=== PATIENT | female | born 1945 | race Caucasian/White ===

== ENCOUNTER → 2017-06-09 | Outpatient (CLI) | payer MEDICARE ==
[~2017-06-09] MED LIST: ATEN25TA PO; LOSA1TAB18 PO
== END | disposition home or self-care (01) ==
LOC: LAB 09:43
PROVIDERS: ATTEND Family Medicine
DX: E03.9 Hypothyroidism, unspecified (principal)
CPT/HCPCS: 36415; 84443

== ENCOUNTER → 2017-09-14 | Outpatient (CLI) | payer MEDICARE ==
[~2017-09-14] MED LIST changes: -LOSA1TAB18 PO; +LOSA1TAB25 PO
== END | disposition home or self-care (01) ==
LOC: RAD 12:05
PROVIDERS: ATTEND Internal Medicine Critical Care Medicine
DX: J92.9 Pleural plaque without asbestos (principal); E04.2 Nontoxic multinodular goiter
CPT/HCPCS: 71250

== ENCOUNTER 2017-09-17 05:38 | Day surgery (SDC) | payer MEDICARE ==
[2017-09-14 13:31] LABS: BLOOD UREA NITROGEN 14 mg/dL (7-18)
[2017-09-14 13:34] LABS: ASPARTATE AMINO TRANSFERASE 13 U/L (15-37)
[~2017-09-17] VITALS: Ht 162.6 cm; Wt 75.1 kg
[~2017-09-17 05:38] MED LIST changes: +AMLO2.5T PO; +ASCO10004 PO; +CARI350T PO; +D-MA50PO PO; +DEXL60CA2 PO; +DIAZ5TAB4 PO; +ESTR0.3T PO; +HYDR25TA6 PO; +LEVO25TA4 PO; +LOSA25TA5 PO; +LOSA50TA6 PO; +POTA10CA PO; +ROSU5TAB PO
[2017-09-17 06:22] VITALS: BP 153/78
[2017-09-17] MEDS ORDERED: NITR100C PO (06:29)
[2017-09-17] MEDS ORDERED: LACTATED RINGERS 1,000 ML IV SCH (06:30)
[2017-09-17] MEDS ORDERED: LIDOCAINE 1%, 2ML SQ PRN (06:30)
[2017-09-17] MEDS ORDERED: LIDOCAINE 1%, 2ML ONE (06:35)
[2017-09-17] MEDS ORDERED: NEOSTIGMINE 1 MG/ML, 10ML ONE ×2 (07:13→09:07)
[2017-09-17] MEDS ORDERED: DEXAMETHASONE 4 MG/ML, 1ML ONE ×2 (07:13)
[2017-09-17] MEDS ORDERED: ROCURONIUM 10 MG/ML,10ML ONE (07:13)
[2017-09-17] MEDS ORDERED: PROPOFOL 10 MG/ML, 20ML ONE (07:13)
[2017-09-17] MEDS ORDERED: MIDAZOLAM 1 MG/ML, 2ML ONE (07:13)
[2017-09-17] MEDS ORDERED: SUFentanil 50 MCG/ML, 1ML ONE (07:13)
[2017-09-17] MEDS ORDERED: ONDANSETRON 2MG/ML, 2ML ONE ×2 (07:14→10:01)
[2017-09-17] MEDS ORDERED: PHENYLEPHRINE 10 MG/ML ONE (07:14)
[2017-09-17] MEDS ORDERED: LIDOCAINE-MPF 2% ,5ML ONE (07:15)
[2017-09-17] MEDS ORDERED: SODIUM CHLORIDE 0.9% PF 10ML ONE (07:17)
[2017-09-17] MEDS ORDERED: LABETALOL 5MG/ML, 20ML IV PRN (08:30)
[2017-09-17] MEDS ORDERED: HYDROcodone/APAP 7.5-325MG/15ML UDC PO PRN (08:30)
[2017-09-17] MEDS ORDERED: LORazepam 2 MG/ML, 1ML IVPush PRN (08:30)
[2017-09-17] MEDS ORDERED: PROMETHAZINE 25 MG/ML, 1ML IV PRN (08:30)
[2017-09-17] MEDS ORDERED: MEPERIDINE/PF 25MG/0.5ML IVPush PRN (08:30)
[2017-09-17] MEDS ORDERED: FENTANYL PF 100 MCG/2ML IV PRN (08:30)
[2017-09-17] MEDS ORDERED: HYDROmorphone 1 MG/ML, 1ML IV PRN (08:30)
[2017-09-17] MEDS ORDERED: hydrALAzine 20 MG/ML, 1ML IV PRN (08:30)
[2017-09-17] MEDS ORDERED: ONDANSETRON 2MG/ML, 2ML IVPush PRN (08:30)
[2017-09-17] MEDS ORDERED: ACETAMINOPHEN 325 MG TABLET PO PRN (08:30)
[2017-09-17] MEDS ORDERED: GLYCOPYRROLATE 0.4 MG/2 ML, 2ML ONE (09:07)
[2017-09-17] MEDS ORDERED: METOCLOPRAMIDE 5 MG/ML, 2ML ONE (09:19)
[2017-09-17] MEDS ORDERED: PROMETHAZINE 25 MG/ML, 1ML ONE (09:19)
[2017-09-17] MEDS ORDERED: EPINEPHRINE SYRINGE 0.1 MG/ML, 10ML ONE (12:00)
== END 2017-09-17 12:20 ==
LOC: OUT 05:38
PROVIDERS: ATTEND Internal Medicine Critical Care Medicine
DX: J18.9 Pneumonia, unspecified organism (principal); J40 Bronchitis, not specified as acute or chronic; J98.4 Other disorders of lung; E78.5 Hyperlipidemia, unspecified; I10 Essential (primary) hypertension; E03.9 Hypothyroidism, unspecified; G47.33 Obstructive sleep apnea (adult) (pediatric); Z87.39 Personal history of other diseases of the musculoskeletal system and connective tissue; Z88.5 Allergy status to narcotic agent; Z88.8 Allergy status to other drugs, medicaments and biological substances
CPT/HCPCS: 31624; 31625; 31627; 31628; 31629; 36415; 71010; 76001; 80053; 81003; 87015; 87070; 87086; 87102; 87116; 87205; 87206; 88112; 88173; 88305; 93005; J1100; J2250; J2370; J2405; J2550; J2704; J2710; J3490; J7120

== ENCOUNTER → 2017-10-21 | Outpatient (CLI) | payer MEDICARE ==
[~2017-10-21] MED LIST changes: +NITR100C PO
[2017-10-21 08:17] LABS: ALANINE AMINOTRANSFERASE 24 U/L (12-78); ANION GAP 8 mmol/L (5-15); CALCIUM 9.4 mg/dL (8.5-10.1); CHLORIDE 104 mmol/L (98-107)
[2017-10-21 08:23] LABS: BASOPHILS # (AUTO) 0.03 x10^3/uL (0-0.1); BASOPHILS % (AUTO) 1 % (0-1); EOSINOPHILS # (AUTO) 0.07 x10^3/uL (0-0.4); EOSINOPHILS % (AUTO) 1 % (1-7); LYMPHOCYTES # (AUTO) 1.27 x10^3/uL (1-3.4); LYMPHOCYTES % (AUTO) 21 % (22-44); MD NO; MEAN CORPUSCULAR HEMOGLOBIN 29.1 pg (27.0-34.8); MEAN CORPUSCULAR HGB CONC 34.1 g/dL (32.4-35.8); MEAN CORPUSCULAR VOLUME 85.5 fL (80-100); MEAN PLATELET VOLUME 9.4 fL (7.4-10.4); MONOCYTES # (AUTO) 0.63 x10^3/uL (0.2-0.8); MONOCYTES % (AUTO) 11 % (2-9); NEUTROPHILS # (AUTO) 3.93 x10^3/uL (1.8-6.8); NEUTROPHILS % (AUTO) 66 % (42-75); PLATELET COUNT 140 x10^3/uL (130-400); RED BLOOD COUNT 4.78 x10^6/uL (3.82-5.3)
[2017-10-21 08:26] LABS: MICROSCOPIC INDICATED
[2017-10-21 08:28] LABS: ALKALINE PHOSPHATASE 103 U/L (45-117); BILIRUBIN,TOTAL 0.6 mg/dL (0.2-1.0); CHOL/HDL RATIO 4.1; CHOLESTEROL, TOTAL 215 mg/dL (140-239); CREATININE 0.66 mg/dL (0.55-1.02); HDL CHOL % 24 % (28-40); HDL CHOLESTEROL (DIRECT) 52 mg/dL (40-60); LDL CHOLESTEROL,CALCULATED 133 mg/dL (54-169); LDL/HDL RATIO 2.6 (0.5-3.0); TOTAL PROTEIN 7.1 g/dL (6.4-8.2); TRIGLYCERIDES 150 mg/dL (50-200); VLDL CHOLESTEROL 30 mg/dL (0-25)
== END ==
LOC: LAB 07:44
PROVIDERS: ATTEND Family Medicine
DX: E03.9 Hypothyroidism, unspecified (principal); I10 Essential (primary) hypertension; E78.2 Mixed hyperlipidemia; K21.0 Gastro-esophageal reflux disease with esophagitis; R79.89 Other specified abnormal findings of blood chemistry
CPT/HCPCS: 36415; 80053; 80061; 81001; 82306; 84443; 85025

== ENCOUNTER → 2017-10-27 | Outpatient (CLI) | payer MEDICARE | LOC: CFH 07:39 | PROVIDERS: ATTEND Internal Medicine Critical Care Medicine | DX: R91.8 Other nonspecific abnormal finding of lung field (principal) | CPT/HCPCS: 71250 ==

== ENCOUNTER → 2017-10-27 | Outpatient (CLI) | payer MEDICARE | LOC: PETCFH 07:37 | PROVIDERS: ATTEND Internal Medicine Critical Care Medicine | DX: R91.1 Solitary pulmonary nodule (principal) | CPT/HCPCS: 78815; A9552 ==

== ENCOUNTER → 2018-01-04 | Outpatient (CLI) | payer MEDICARE | END | disposition home or self-care (01) | LOC: EDSTATUS 12-31 08:30 → CFH 08:26 | PROVIDERS: ATTEND Internal Medicine Critical Care Medicine | DX: J01.90 Acute sinusitis, unspecified (principal) | CPT/HCPCS: 70486 ==

== ENCOUNTER → 2018-06-08 | Outpatient (CLI) | payer MEDICARE | END | disposition home or self-care (01) | LOC: CFH 08:56 | PROVIDERS: ATTEND Internal Medicine Critical Care Medicine | DX: R91.1 Solitary pulmonary nodule (principal) | CPT/HCPCS: 71250 ==

== ENCOUNTER → 2018-06-22 | Outpatient (CLI) | payer MEDICARE ==
[~2018-06-22] MED LIST changes: -AMLO2.5T PO; +AMLO2.5T3 PO; -LOSA25TA5 PO; +LOSA25TA6 PO; -LOSA50TA6 PO; +LOSA50TA7 PO; +REGADENOSON 0.4 MG/5 ML SYRINGE ONE
== END | disposition home or self-care (01) ==
LOC: CVU 07:51
PROVIDERS: ATTEND Nurse Practitioner Family
DX: I34.0 Nonrheumatic mitral (valve) insufficiency (principal); I35.8 Other nonrheumatic aortic valve disorders; I10 Essential (primary) hypertension
CPT/HCPCS: 78452; 93017; 93306; A9502; J2785

== ENCOUNTER 2018-07-21 06:34 | Day surgery (SDC) | payer MEDICARE ==
[~2018-07-21] VITALS: Ht 162.6 cm; Wt 76.1 kg
[~2018-07-21 06:34] MED LIST changes: -REGADENOSON 0.4 MG/5 ML SYRINGE ONE
[2018-07-21 07:35] VITALS: BP 171/84
[2018-07-21] MEDS ORDERED: LACTATED RINGERS 1,000 ML IV SCH (07:37)
[2018-07-21] MEDS ORDERED: FLUMAZENIL 0.1 MG/1 ML, 5ML ONE (08:56)
[2018-07-21] MEDS ORDERED: NALOXONE 1 MG/ML, 2ML ONE (08:56)
[2018-07-21] MEDS ORDERED: FENTANYL PF 100 MCG/2ML ONE (08:56)
[2018-07-21] MEDS ORDERED: MIDAZOLAM 1 MG/ML, 5ML ONE (08:56)
[2018-07-21] MEDS ORDERED: LIDOCAINE-MPF 2% ,5ML ONE (09:17)
== END 2018-07-21 13:00 | disposition home or self-care (01) ==
LOC: OUT 06:34
PROVIDERS: ATTEND Internal Medicine Critical Care Medicine
DX: J98.4 Other disorders of lung (principal); Z87.891 Personal history of nicotine dependence; Z88.5 Allergy status to narcotic agent; Z88.8 Allergy status to other drugs, medicaments and biological substances
CPT/HCPCS: 32405; 71045; 77012; 88305; 99156; C2613; J2250; J3010; J3490; 99157; J2310

== ENCOUNTER 2018-11-30 06:56 | Inpatient (IN) | payer MEDICARE ==
[~2018-11-30] VITALS: Ht 162.6 cm; Wt 76.0 kg
[~2018-11-30 06:56] MED LIST changes: -AMLO2.5T3 PO; +AMLO2.5T5 PO; +BUPIVACAINE/PF-EPI 0.5% 1:200K ONE; +CHOL100012 PO; +IRBE300T16 PO; +LACT1CAP35 PO; +LOSA25TA25 PO; -LOSA25TA6 PO; +LOSA50TA14 PO; -LOSA50TA7 PO
[2018-11-30] MEDS ORDERED: LACTATED RINGERS 1,000 ML IV SCH (07:37)
[2018-11-30] MEDS ORDERED: ACETAMINOPHEN 500 MG TABLET PO ONE (08:00)
[2018-11-30] MEDS ORDERED: DIAZEPAM 5 MG TABLET PO ONE (08:00)
[2018-11-30] MEDS ORDERED: LIDOCAINE-MPF 1%, 2ML INFIL ONE (08:00)
[2018-11-30] MEDS ORDERED: SCOPOLAMINE PATCH, 1.5MG PATCH.TD72 TD ONE (08:00)
[2018-11-30] MEDS ORDERED: MIDAZOLAM 1 MG/ML, 2ML ONE (08:47)
[2018-11-30] MEDS ORDERED: FENTANYL PF 250 MCG/5ML ONE (08:47)
[2018-11-30] MEDS ORDERED: CEFAZOLIN 1,000 MG ONE (09:10)
[2018-11-30] MEDS ORDERED: MIDAZOLAM 1 MG/ML, 2ML IV PRN (09:30)
[2018-11-30] MEDS ORDERED: DIAZEPAM 5 MG/ML, 2ML IVPush PRN (09:30)
[2018-11-30] MEDS ORDERED: PROMETHAZINE 12.5 MG SUPP PR PRN (09:30)
[2018-11-30] MEDS ORDERED: HALOPERIDOL 5 MG/ML IV PRN (09:30)
[2018-11-30] MEDS ORDERED: ONDANSETRON 2MG/ML, 2ML IV PRN (09:30)
[2018-11-30] MEDS ORDERED: EPHEDRINE 50 MG/ML, 1ML IVPush PRN (09:30)
[2018-11-30] MEDS ORDERED: LABETALOL 5MG/ML, 20ML IV PRN (09:30)
[2018-11-30] MEDS ORDERED: ONDANSETRON ODT 8 MG PO PRN (09:30)
[2018-11-30] MEDS ORDERED: hydrALAzine 20 MG/ML, 1ML IV PRN (09:30)
[2018-11-30] MEDS ORDERED: PROMETHAZINE 25 MG/ML, 1ML IV PRN (09:30)
[2018-11-30] MEDS ORDERED: FENTANYL PF 100 MCG/2ML IV PRN (09:30)
[2018-11-30] MEDS ORDERED: MORPHINE SULFATE 4 MG/ML, 1ML IVPush PRN (09:30)
[2018-11-30] MEDS ORDERED: ALBUTEROL SULFATE 2.5 MG/3 ML NPPB PRN (09:30)
[2018-11-30] MEDS ORDERED: MEPERIDINE/PF 25MG/0.5ML IVPush PRN (09:30)
[2018-11-30] MEDS ORDERED: NEOSTIGMINE 1 MG/ML, 10ML ONE (09:45)
[2018-11-30] MEDS ORDERED: GLYCOPYRROLATE 0.4 MG/2 ML, 2ML ONE (09:45)
[2018-11-30] MEDS ORDERED: SUCCINYLCHOLINE 20 MG/ML, 10ML ONE (09:46)
[2018-11-30] MEDS ORDERED: ONDANSETRON 2MG/ML, 2ML ONE ×2 (09:46)
[2018-11-30] MEDS ORDERED: ROCURONIUM 10MG/ML,5ML ONE (09:46)
[2018-11-30] MEDS ORDERED: PROPOFOL 10 MG/ML, 20ML ONE (09:46)
[2018-11-30] MEDS ORDERED: KETOROLAC 30 MG/1 ML ONE (09:50)
[2018-11-30] MEDS ORDERED: hydrALAzine 20 MG/ML, 1ML IVPush PRN (10:00)
[2018-11-30] MEDS ORDERED: ONDANSETRON 2MG/ML, 2ML IVPush PRN (10:00)
[2018-11-30] MEDS ORDERED: DIAZEPAM 5 MG TABLET PO PRN (10:00)
[2018-11-30] MEDS ORDERED: HYDROmorphone 1 MG/ML, 1ML ONE (10:42)
[2018-11-30] MEDS: HYDROmorphone 2 MG/ML, 1ML IVPush PRN ×5 (10:45→15:45)
[2018-11-30] MEDS: ENOXAPARIN 40 MG/0.4 ML SQ SCH (11:56)
[2018-11-30] MEDS: LACTATED RINGERS 1,000 ML IV SCH ×2 (12:04→23:08)
[2018-11-30 12:06] VITALS: BP 153/78
[2018-11-30] MEDS: HYDROcodone/APAP 5/325 TABLET PO PRN ×3 (14:04→23:04)
[2018-11-30 15:00] VITALS: BP 152/81
[2018-11-30 15:44] VITALS: BP 152/81
[2018-11-30 19:44] VITALS: BP 118/56
[2018-12-01 01:10] VITALS: BP 121/76
[2018-12-01] MEDS: HYDROcodone/APAP 5/325 TABLET PO PRN ×2 (04:12→08:42)
[2018-12-01 07:45] VITALS: BP 127/70
[2018-12-01] MEDS: PANTOPROZOLE 40MG TABLET PO SCH (08:42)
[2018-12-01] MEDS: HYDROCHLOROTHIAZIDE 25 MG TABLET PO SCH (08:42)
[2018-12-01] MEDS: LEVOTHYROXINE 25 MCG TABLET PO SCH (08:43)
[2018-12-01] MEDS: IRBESARTAN 300 MG TABLET PO SCH (08:43)
[2018-12-01] MEDS ORDERED: CARISOPRODOL 350 MG TABLET PO SCH (09:00)
[2018-12-01] MEDS: ENOXAPARIN 40 MG/0.4 ML SQ SCH (10:37)
[2018-12-01] MEDS: ESTROGEN CONJUGATED 0.3 MG TABLET PO SCH (10:37)
[2018-12-01] MEDS: HYDROmorphone 2 MG/ML, 1ML IVPush PRN (11:15)
[2018-12-01] MEDS: LACTATED RINGERS 1,000 ML IV SCH (12:04)
[2018-12-01 14:20] VITALS: BP 124/58
[2018-12-01 18:02] LABS: MICROSCOPIC NOT IND
[2018-12-01 18:03] LABS: CULTURE INDICATED? NO
[2018-12-01 19:22] VITALS: BP 116/65
[2018-12-01] MEDS: HYDROmorphone 2MG TABLET PO PRN (20:04)
[2018-12-01 20:12] VITALS: BP 165/61
[2018-12-02] MEDS: HYDROmorphone 2MG TABLET PO PRN ×4 (00:03→15:28)
[2018-12-02] MEDS: LACTATED RINGERS 1,000 ML IV SCH ×2 (01:37→15:18)
[2018-12-02 01:50] VITALS: BP 129/69
[2018-12-02] MEDS: PANTOPROZOLE 40MG TABLET PO SCH (05:36)
[2018-12-02 07:50] VITALS: BP 115/55
[2018-12-02] MEDS: ESTROGEN CONJUGATED 0.3 MG TABLET PO SCH (09:28)
[2018-12-02] MEDS: IRBESARTAN 300 MG TABLET PO SCH (09:28)
[2018-12-02] MEDS: HYDROCHLOROTHIAZIDE 25 MG TABLET PO SCH (09:29)
[2018-12-02] MEDS: ENOXAPARIN 40 MG/0.4 ML SQ SCH (09:29)
[2018-12-02] MEDS: LEVOTHYROXINE 25 MCG TABLET PO SCH (09:29)
[2018-12-02 12:38] VITALS: BP 95/42
[2018-12-02] MEDS ORDERED: HYDR-3240 PO (17:08)
== END 2018-12-02 17:45 | disposition home or self-care (01) | DRG 164 ==
LOC: ORIP 06:56 → 4NOR 12:21
PROVIDERS: ADMIT Thoracic Surgery (Cardiothoracic Vascular Surgery); ATTEND Thoracic Surgery (Cardiothoracic Vascular Surgery)
PROC: 0BBG4ZZ Excision of Left Upper Lung Lobe, Percutaneous Endoscopic Approach (ICD-10-PCS; principal; 2018-11-30 09:00)
DX: C34.12 Malignant neoplasm of upper lobe, left bronchus or lung (principal); K57.92 Diverticulitis of intestine, part unspecified, without perforation or abscess without bleeding; J93.9 Pneumothorax, unspecified; E78.5 Hyperlipidemia, unspecified; I10 Essential (primary) hypertension; E03.9 Hypothyroidism, unspecified; F41.9 Anxiety disorder, unspecified; Z88.8 Allergy status to other drugs, medicaments and biological substances; Z87.891 Personal history of nicotine dependence
CPT/HCPCS: 36415; 71045; 81003; 86850; 86900; 86923; 88309; 93005; C1729; G0378; J0690; J1170; J1650; J1885; J2250; J2405; J2704; J2710; J3010; J0330; J7120

== ENCOUNTER 2018-12-15 13:35 | Emergency (ER) | payer MEDICARE ==
[~2018-12-15] VITALS: Ht 162.6 cm; Wt 71.0 kg
[~2018-12-15 13:35] MED LIST changes: -BUPIVACAINE/PF-EPI 0.5% 1:200K ONE; +HYDR-3240 PO
[2018-12-15 14:11] LABS: BASOPHILS # (AUTO) 0.02 x10^3/uL (0-0.1); BASOPHILS % (AUTO) 0 % (0-1); EOSINOPHILS % (AUTO) 4 % (1-7); LYMPHOCYTES # (AUTO) 0.81 x10^3/uL (1-3.4); LYMPHOCYTES % (AUTO) 11 % (22-44); MD NO; MEAN CORPUSCULAR HEMOGLOBIN 29.7 pg (27.0-34.8); MEAN CORPUSCULAR HGB CONC 34.3 g/dL (32.4-35.8); MEAN CORPUSCULAR VOLUME 86.6 fL (80-100); MEAN PLATELET VOLUME 8.2 fL (7.4-10.4); MONOCYTES # (AUTO) 0.67 x10^3/uL (0.2-0.8); MONOCYTES % (AUTO) 9 % (2-9); NEUTROPHILS # (AUTO) 5.54 x10^3/uL (1.8-6.8); NEUTROPHILS % (AUTO) 76 % (42-75); PLATELET COUNT 299 x10^3/uL (130-400); RED BLOOD COUNT 4.06 x10^6/uL (3.82-5.3); RED CELL DISTRIBUTION WIDTH 13.6 % (9.6-15.2)
[2018-12-15 14:18] LABS: ALBUMIN 3.8 g/dL (3.4-5.0); ANION GAP 5 mmol/L (5-15); CALCIUM 9.5 mg/dL (8.5-10.1); CHLORIDE 104 mmol/L (98-107); CREATININE 0.75 mg/dL (0.55-1.02)
[2018-12-15 14:22] LABS: TROPONIN I < 0.015 ng/mL (0.000-0.045)
--- NOTE | 2018-12-15 14:42 | NUR ---
pt moved to room.
--- NOTE | 2018-12-15 15:20 | NUR ---
PT BIB P/V FOR INTERMIITENT CP, NOT REPRODUCIBLE THAT HAS BEEN CHARACTERISTIC OF THE SAME PAIN SINCE SHE HAD WEDGE RESECTION OF LEFT LUNG FOR DOUDULE. PER SPOUSE AT BEDSIDE, NODULE HAS LOW PROFILE AND IS NOT OF CONCERN FOR CANCER. PT ALOC C/O INCREASED INDIGESTION SINCE PROCEDURE. DR. BARONE AT BEDSIDE.
[2018-12-15] MEDS ORDERED: POTASSIUM CHLORIDE 20 MEQ TAB.ER.PRT PO ONE (15:30)
[2018-12-15] MEDS ORDERED: MAALOX/HYOSCYAMINE/LIDOCAINE 45 ML BTL PO ONE (15:30)
[2018-12-15] MEDS ORDERED: POTASSIUM CHLORIDE 20 MEQ TAB.ER.PRT ONE ×2 (15:39→15:45)
[2018-12-15] MEDS ORDERED: MAALOX/HYOSCYAMINE/LIDOCAINE 45 ML BTL ONE (15:39)
[2018-12-15 15:50] VITALS: BP 156/65
== END 2018-12-15 16:19 | disposition home or self-care (01) ==
LOC: ED 16:12
DX: R53.1 Weakness (principal); E87.6 Hypokalemia; K21.9 Gastro-esophageal reflux disease without esophagitis; I10 Essential (primary) hypertension
CPT/HCPCS: 36415; 71045; 80048; 82040; 84484; 85025; 93005; 99284

== ENCOUNTER → 2019-08-22 | Outpatient (CLI) | payer MEDICARE | END | disposition home or self-care (01) | LOC: CFH 08:38 | PROVIDERS: ATTEND Family Medicine | DX: K76.0 Fatty (change of) liver, not elsewhere classified (principal) | CPT/HCPCS: 76700 ==

== ENCOUNTER → 2019-12-08 | Outpatient (CLI) | payer MEDICARE ==
[~2019-12-08] MED LIST changes: -IRBE300T16 PO; +IRBE300T8 PO; +OMNIPAQUE 350 MG/ML, 100ML BOTTLE ONE
== END | disposition home or self-care (01) ==
LOC: CFH 13:11
PROVIDERS: ATTEND Internal Medicine Critical Care Medicine
DX: R91.1 Solitary pulmonary nodule (principal); R09.82 Postnasal drip; K21.9 Gastro-esophageal reflux disease without esophagitis; R10.30 Lower abdominal pain, unspecified; R13.10 Dysphagia, unspecified; E78.5 Hyperlipidemia, unspecified; K76.0 Fatty (change of) liver, not elsewhere classified; I10 Essential (primary) hypertension
CPT/HCPCS: 70486; 71250; 74177; Q9967

== ENCOUNTER → 2020-04-12 | Outpatient (CLI) | payer MEDICARE ==
[~2020-04-12] MED LIST changes: -OMNIPAQUE 350 MG/ML, 100ML BOTTLE ONE
== END | disposition home or self-care (01) ==
LOC: CFH 08:43
PROVIDERS: ATTEND Family Medicine
DX: E04.2 Nontoxic multinodular goiter (principal)
CPT/HCPCS: 76536

== ENCOUNTER → 2020-05-29 | Outpatient (CLI) | payer MEDICARE ==
[~2020-05-29] MED LIST changes: +LIDOCAINE 1%, 10ML ONE
== END | disposition home or self-care (01) ==
LOC: RAD 12:36
PROVIDERS: ATTEND Surgery
DX: E04.1 Nontoxic single thyroid nodule (principal); E04.2 Nontoxic multinodular goiter; Z88.8 Allergy status to other drugs, medicaments and biological substances; Z79.899 Other long term (current) drug therapy; Z82.49 Family history of ischemic heart disease and other diseases of the circulatory system
CPT/HCPCS: 10005; 88173

== ENCOUNTER → 2020-06-18 | Outpatient (CLI) | payer MEDICARE ==
[~2020-06-18] MED LIST changes: +ASCO100018 PO; -ASCO10004 PO; -LIDOCAINE 1%, 10ML ONE; +REGADENOSON 0.4 MG/5 ML SYRINGE ONE
== END | disposition home or self-care (01) ==
LOC: RAD 08:03
PROVIDERS: ATTEND Internal Medicine Cardiovascular Disease
DX: R07.89 Other chest pain (principal); I10 Essential (primary) hypertension
CPT/HCPCS: 78452; 93017; A9502; J2785

== ENCOUNTER → 2020-07-19 | Outpatient (CLI) | payer MEDICARE ==
[~2020-07-19] MED LIST changes: +OMNIPAQUE 350 MG/ML, 75ML BOTTLE ONE; -REGADENOSON 0.4 MG/5 ML SYRINGE ONE
== END | disposition home or self-care (01) ==
LOC: CFH 08:55
PROVIDERS: ATTEND Thoracic Surgery (Cardiothoracic Vascular Surgery)
DX: C34.10 Malignant neoplasm of upper lobe, unspecified bronchus or lung (principal); Z98.890 Other specified postprocedural states
CPT/HCPCS: 71260; Q9967